=== PATIENT | female | born 1990 ===

== ENCOUNTER 2024-08-02 06:21 | Day surgery (SDC) | payer BC, SELFPAY ==
[2024-07-19 09:16] LABS: Hematocrit 43.9 % (37.0-47.0); Hemoglobin 14.9 g/dL (12.0-16.0); Mean Corp Hgb Conc. 33.9 g/dL (33.0-37.0); Mean Corpuscular Hgb 30.2 pg (27.0-31.0); Mean Platelet Volume 12.7 fL (7.4-10.4); Platelet Count 277 10^3/uL (130-400); Red Blood Cell Count 4.93 10^6/uL (4.20-5.40); Red Cell Dist. Width 12.7 % (11.5-14.5)
[2024-07-19 10:31] LABS: ALT (SGPT) 20 U/L (0-35); AST (SGOT) 21 U/L (14-36); Albumin 4.7 g/dl (3.5-5.0); Alkaline Phosphatase 64 U/L (38-126); Blood Urea Nitrogen 19 mg/dl (7-17); Calcium 9.7 mg/dl (8.4-10.2); Carbon Dioxide 23 mmol/L (22-30); Chloride 107 mmol/L (98-107); Glucose 81 mg/dl (70-99); Potassium 4.7 mmol/L (3.5-5.1); Sodium 140 mmol/L (135-145); Total Bilirubin 0.6 mg/dl (0.2-1.3); Total Protein 7.5 g/dl (6.3-8.2); eGFR > 60.00
[2024-07-19 13:00] VITALS: BMI 28.3
[2024-08-02] VITALS (10 sets, daily range): BP systolic 4–133; BP diastolic 65–79; BMI 28.3
[2024-08-02] MEDS: NORMOSOL-R/PLASMALYTE-A 1000 IV (10:48)
[2024-08-02] MEDS: LOVENOX 40 MG SC (11:27)
[2024-08-02] MEDS: TYLENOL 1000 MG PO (11:44)
--- NOTE | 2024-08-02 16:44 | OR.RPT ---
Operative Report
Operative Report
Date of surgery: 08/02/2024
Surgeon: EBONIE Russell MD
Preoperative diagnosis: Macromastia, cervicodynia, intermittent intertrigo
Postoperative diagnosis: Same
Procedure:
1. Bilateral breast reduction
2. Suction assisted lipectomy of trunk
Anesthesia: General
EBL: 50 cc
Complications: None
Specimens: Right breast tissue, left breast tissue
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
Met the criteria for insurance based breast reduction per the policies medical necessity bulletin. As such we discussed breast reduction surgery at length including risks such as resultant scars, potential asymmetry, need for repeat procedure,
compromise of nipple areolar complex, hematoma, seroma, wound healing compromise and nerve changes. 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 As such we had a long
conversation about DVT PE and the potential consequences as well as the mechanisms by which we would attempt to minimize this possibility. A plan was made for both mechanical and chemical prophylaxis in the pre and postoperative phase. This was
reviewed with the patient and her at length. Consents were signed accordingly.
Procedure in detail: Patient was identified preoperatively and the surgical site was confirmed to be the bilateral breast and lateral chest wall. All questions were answered and consents were confirmed. With the patient standing in the upright
position, bilateral superior medial Solorzano pattern breast reductions were marked out. Furthermore there are areas of relative fullness of the lateral chest wall were marked out to contour the breast appropriately. This confirmed that preoperative
Lovenox have been administered and SCDs and PALAK hose were in place. Patient was taken back to the operating room placed supine on the table. Anesthesia was induced and the patient was prepped and draped in usual sterile fashion using ChloraPrep
solution. A Cheung catheter was placed. Tremendous care was taken to ensure that knees were slightly flexed and SCD/antiembolism stockings were in place for the duration. A timeout for patient safety was performed and was confirmed that
preoperative antibiotics had been administered. The procedure began first on the right side with the injection 1% lidocaine with epinephrine along the inframammary fold. All the incisions were then made with a 15 blade. The the nipple was marked
with a 42 mm cookie cutter. The breast was placed under a temporary tourniquet and the superior medial pedicle was de-epithelialized. The tourniquet was released and Bovie cautery was utilized to dissect out the pedicle. This was done down to the
chest wall. The excess inferior and lateral tissue was then excised and sent for specimen. Approximately 645 g was removed from the right breast. Meticulous hemostasis was ensured and dilute Marcaine blocks were performed. A drain was left in
place along the pectoralis intercostal fascia. The breast was then closed in layers using 2-0 Vicryl followed by 3-0 Monocryl and INSORB stapler, and 4-0 Monocryl. Drain was sutured in place with a 2-0 Prolene. It been determined that an adequate
reduction been achieved and the nipple was in a good position. No evidence of vascular or venous compromise. Attention was then drawn to the left side where the exact same procedure was performed. Local anesthesia was administered to the
inframammary fold and the markings were incised with a 15 blade. Nipple was marked with a 42 mm cookie cutter. The breast was placed under temporary tourniquet and the superior medial pedicle was de-epithelialized. The tourniquet was released and
then the pedicle was dissected down to the chest wall. The inferior and lateral breast excess were sent as specimens. The left side weighed approximately 643 g. This was consistent with the relative asymmetry the patient expressed. Meticulous
hemostasis was ensured and blocks were performed. A drain was left in place. The wound was then closed in layers using 2-0 Vicryl followed by 3-0 Monocryl in sorb stapler and 4-0 Monocryl. Nipple also showed evidence of adequate perfusion without
congestion. Attention was then drawn to the areas for suction assisted lipectomy. Tumescent solution consisting of dilute lidocaine with epinephrine was distributed along the preaxilla and lateral chest wall as well as lateral breast. Appropriate
amount of time was waited and then lipo dissection was performed off suction. Suction assisted lipectomy was then performed to the bilateral chest wall and lateral breast. Total of approximately 800 cc Lipo aspirate was removed. Following this
the patient had adequate correction and significantly improved lateral breast contour. Access sites were closed with 5-0 fast. Confirmation of size and symmetry was done with the patient flexed in the upright position. All wounds were dressed
with bacitracin ointment followed by sterile gauze and Tegaderms. A surgical bra was placed for compression. Patient was extubated taken the PACU for further care. All counts were correct at the end the case. The case was performed without
complication.
--- NOTE | 2024-08-02 16:48 | W.IMMPOSTOP ---
Surgical Immed Post Op Note
-
Primary Surgeon: EBONIE Russell MD
Assisting Surgeon:
Pre-op Diagnosis: Macromastia
Post-op Diagnosis: Same
Procedure Performed: Bilateral breast reduction and suction assisted lipectomy
Anesthesia Type: General
Specimen / Cultures: Right / left breast tissue
Estimated Blood Loss: 50 cc
Complications: None
Operative Findings: As expected
== END 2024-08-02 17:45 | disposition home or self-care (01) ==
LOC: SDS 06:21
PROVIDERS: ATTENDING PHYSICIAN Surgery Plastic and Reconstructive Surgery; FAMILY PHYSICIAN Nurse Practitioner Family
DX: N62 Hypertrophy of breast (principal); M54.2 Cervicalgia; L30.4 Erythema intertrigo; N64.89 Other specified disorders of breast
CPT/HCPCS: 19318; 88305; 36415; 80053; 85027; 93005; C1729

== ENCOUNTER → 2024-08-11 11:30 | Outpatient (REF) | payer BC, SELFPAY | LOC: HWRAD 11:30 | PROVIDERS: ATTENDING PHYSICIAN Surgery Plastic and Reconstructive Surgery; FAMILY PHYSICIAN Nurse Practitioner Family | DX: D68.59 Other primary thrombophilia (principal) | CPT/HCPCS: 93970 ==